=== PATIENT | female | born 1965 | race Caucasian/White ===

== ENCOUNTER 2018-09-11 12:05 | Emergency (ER) | payer OTHER, SELFPAY ==
[2018-09-11 12:06] VITALS: BP 141/83; PULSE 78; RESP 20; TEMP 35.9; O2SAT 99
[2018-09-11] MEDS: ONDANSETRON 4 MG/2 ML INJ IV (13:16)
--- NOTE | 2018-09-11 13:25 | PC.NURSE ---
pain free at this time
[2018-09-11 13:31] LABS: Add Manual Diff / Slide Review NO; Basophils Percent Auto 0.4 % (0-2); Eosinophils Percent Auto 0.3 % (2-4); Hematocrit 47.8 % (36-46); Hemoglobin 16.1 g/dL (12.0-16.0); Lymphocytes Percent Auto 15.4 % (25-40); Mean Corpuscular HGB Conc 33.6 % (30-36); Mean Corpuscular Hemoglobin 30.8 PG (26-34); Mean Corpuscular Volume 91.6 fL (80-100); Monocytes Percent Auto 8.6 % (3-14); Neutrophils Absolute Auto 6500 /uL (3000-5900); Neutrophils Percent Auto 75.3 % (50-75); Platelet Count 246 X10^3/uL (150-400); Red Blood Cell Count 5.22 X10^6/uL (4.0-5.2); Red Cell Distribution Width 13.8 % (11.6-14.8); White Blood Cell Count 8.7 X10^3/uL (4.5-11.0)
[2018-09-11 13:37] LABS: Alanine Aminotransferase 34 IU/L (9-52); Albumin 5.2 g/dL (3.5-5.0); Albumin Globulin Ratio 1.6 (1.0-2.8); Alkaline Phosphatase 91 U/L (38-126); Aspartate Aminotransferase 41 IU/L (14-36); BUN Creatinine Ratio 21.4 (6-22); Bilirubin Total 1.5 mg/dL (0.2-1.3); Blood Urea Nitrogen 15 mg/dL (7-17); Calcium 10.2 mg/dL (8.4-10.2); Carbon Dioxide 23 mmol/L (22-32); Chloride 100 mmol/L (98-107); Estimated Glomerular Filt Rate > 60.0 mL/min (>60); Ethanol (ETOH) < 10 mg/dL; Globulin 3.3 g/dL (1.7-4.1); Glucose 83 mg/dL (70-100); HEMOLYSIS < 15 (0-50); Potassium 4.2 mmol/L (3.4-5.1); Sodium 141 mmol/L (137-145); Total Protein 8.5 g/dL (6.3-8.2)
--- NOTE | 2018-09-11 14:23 | ED.ALCOHOL ---
HPI - Alcohol <CLOVER Charlton- - Last Filed: 09/11/18 15:48> General Chief Complaint: Toxicology Problem Stated Complaint: DETOXING Time Seen by Provider: 09/11/18 12:28 Source: patient Mode of arrival: ambulatory Limitations: no limitations History of Present Illness HPI narrative: Patient presents requesting medications to help up alcohol detox. She states she drinks about 6 beers a day but stopped cold turkey a few days ago. She states she has been having shakes, sweats, nausea. She states she has been drinking alcohol for several years but wants to stop as her father was an alcoholic. She denies any fevers but complains of chills and night sweats. She denies any abdominal pain but complains of nausea. She also complains of some diarrhea. She has not taken anything to feel better. She states that she wants outpatient help and does not want to go a patient. She denies any suicidal ideations, homicidal ideations or self-harm thoughts. She denies any seizure activity. Related Data Previous Rx's Medication Instructions Recorded chlordiazepoxide HCl See Label Instructions .ROUTE 09/11/18 .COMPLEX #32 cap ondansetron 4 mg PO TID-QID PRN #20 tab 09/11/18 Allergies Allergy/AdvReac Type Severity Reaction Status Date / Time codeine Allergy Verified 09/11/18 12:06 Review of Systems <[facility] - Last Filed: 09/11/18 15:48> Review of Systems GENERAL: See HPI HEENT: Denies sinus pain, ear pain, sore throat, difficulty swallowing, dizziness. RESPIRATORY: Denies dyspnea, cough, wheezing, hemoptysis, sputum. CARDIOVASCULAR: Denies chest pain, palpitations, orthopnea, edema, GASTROINTESTINAL: See HPI : Denies dysuria, frequency, incontinence, hematuria, urinary retention. MUSCULOSKELETAL: denies weakness, joint pain, or bony pain SKIN: Denies rash, skin lesions, or other NEUROLOGIC: See HPI PSYCHIATRIC: See HPI 12 point review of systems is negative except for those stated above Exam <[facility] - Last Filed: 09/11/18 15:48> Narrative Exam Narrative: GENERAL: This is a well-nourished, well-developed patient, lying on stretcher HEAD: Atraumatic. Normocephalic. No temporal or scalp tenderness. EYES: Pupils equal round and reactive. Extraocular motions intact. No scleral icterus. No injection or drainage. ENT: Nose without bleeding, purulent drainage or septal hematoma. Throat without erythema, tonsillar hypertrophy or exudate. Uvula midline. Airway patent. NECK: Trachea midline. No JVD or lymphadenopathy. Supple, nontender, no meningeal signs. CARDIOVASCULAR: Regular rate and rhythm without murmurs, gallops, or rubs. RESPIRATORY: Clear to auscultation. Breath sounds equal bilaterally. No wheezes, rales, or rhonchi. GASTROINTESTINAL: Abdomen soft, non-tender, nondistended. No hepato-splenomegaly, or palpable masses. No guarding. Hyperactive bowel sounds all 4 quadrants. EXTREMITIES: No clubbing, cyanosis, or edema. No joint tenderness, effusion, or edema noted. BACK: Nontender without deformity or crepitance. No flank tenderness. NEURO: AOx3. No slurred speech. Slight tremor noted on outstretched hand. SKIN: No rash or erythema. Initial Vital Signs Initial Vital Signs: Vital Signs Temperature 96.6 F L 09/11/18 12:06 Pulse Rate 78 09/11/18 12:06 Respiratory Rate 20 09/11/18 12:06 Blood Pressure 141/83 H 09/11/18 12:06 Pulse Oximetry 99 09/11/18 12:06 <Jan Aguirre DO - Last Filed: 09/11/18 17:38> Initial Vital Signs Initial Vital Signs: Vital Signs Temperature 96.6 F L 09/11/18 12:06 Pulse Rate 78 09/11/18 12:06 Respiratory Rate 20 09/11/18 12:06 Blood Pressure 141/83 H 09/11/18 12:06 Pulse Oximetry 99 09/11/18 12:06 Course <CLOVER Charlton-BC - Last Filed: 09/11/18 15:48> Orders Ordered: ED Orders 09/11/18 13:07 Complete Blood Count AUTO DIFF Stat Comprehensive Metabolic Panel Stat Ethanol (ETOH) Stat Discontinued Medications Sodium Chloride (Normal Saline 0.9%) 1,000 mls @ 1,000 mls/hr IV BOLUS ONE Stop: 09/11/18 15:38 Last Infusion: 09/11/18 16:09 Dose: 0 mls/hr Admin: 09/11/18 15:00 Dose: 1,000 mls/hr Ondansetron HCl (Zofran) 4 mg IV NOW ONE Stop: 09/11/18 12:41 Last Admin: 09/11/18 13:16 Dose: 4 mg Reevaluation(s) Reevaluation #1: Social Work in room. Patient conversing with no problems. Time: 14:20 Reevaluation #2: Patient states she feels much improved. States she would like to go home. States that speaking with social Work was very beneficial. Time: 14:40 Reevaluation #3: IVF is infusing. Patient is denying any questions or concerns at this point time. States she feels much improved. Expresses great appreciation for her care here. Time: 15:20 Vital Signs - 8 hr 09/11/18 12:06 09/11/18 15:17 09/11/18 16:16 Temperature 96.6 F L Pulse Rate 78 86 80 Respiratory Rate 20 16 16 Blood Pressure 141/83 H Blood Pressure [Right Arm] 130/66 122/79 Pulse Oximetry 99 98 98 <Jan Aguirre DO - Last Filed: 09/11/18 17:38> Orders Ordered: ED Orders 09/11/18 13:07 Complete Blood Count AUTO DIFF Stat Comprehensive Metabolic Panel Stat Ethanol (ETOH) Stat Discontinued Medications Sodium Chloride (Normal Saline 0.9%) 1,000 mls @ 1,000 mls/hr IV BOLUS ONE Stop: 09/11/18 15:38 Last Infusion: 09/11/18 16:09 Dose: 0 mls/hr Admin: 09/11/18 15:00 Dose: 1,000 mls/hr Ondansetron HCl (Zofran) 4 mg IV NOW ONE Stop: 09/11/18 12:41 Last Admin: 09/11/18 13:16 Dose: 4 mg Vital Signs - 8 hr 09/11/18 12:06 09/11/18 15:17 09/11/18 16:16 Temperature 96.6 F L Pulse Rate 78 86 80 Respiratory Rate 20 16 16 Blood Pressure 141/83 H Blood Pressure [Right Arm] 130/66 122/79 Pulse Oximetry 99 98 98 MDM - Alcohol <LEV Charlton - Last Filed: 09/11/18 15:48> Lab Data Result diagrams: 09/11/18 13:07 09/11/18 13:07 Labs: Lab Results 09/11/18 09/11/18 Range/Units 13:07 13:07 WBC 8.7 (4.5-11.0) X10^3/uL RBC 5.22 H (4.0-5.2) X10^6/uL Hgb 16.1 H (12.0-16.0) g/dL Hct 47.8 H (36-46) % MCV 91.6 (80-100) fL MCH 30.8 (26-34) PG MCHC 33.6 (30-36) % RDW 13.8 (11.6-14.8) % Plt Count 246 (150-400) X10^3/uL Neut % (Auto) 75.3 H (50-75) % Lymph % (Auto) 15.4 L (25-40) % Camden % (Auto) 8.6 (3-14) % Eos % (Auto) 0.3 L (2-4) % Baso % (Auto) 0.4 (0-2) % Neut # (Auto) 6500 H (8623-3051) /uL Sodium 141 (137-145) mmol/L Potassium 4.2 (3.4-5.1) mmol/L Chloride 100 (98-107) mmol/L Carbon Dioxide 23 (22-32) mmol/L BUN 15 (7-17) mg/dL Creatinine 0.70 (0.52-1.04) mg/dL Estimated GFR > 60.0 (>60) mL/min BUN/Creatinine Ratio 21.4 (6-22) Glucose 83 (70-100) mg/dL Calcium 10.2 (8.4-10.2) mg/dL Total Bilirubin 1.5 H (0.2-1.3) mg/dL AST 41 H (14-36) IU/L ALT 34 (9-52) IU/L Alkaline Phosphatase 91 (38-126) U/L Total Protein 8.5 H (6.3-8.2) g/dL Albumin 5.2 H (3.5-5.0) g/dL Globulin 3.3 (1.7-4.1) g/dL Albumin/Globulin Ratio 1.6 (1.0-2.8) Ethyl Alcohol < 10 mg/dL MDM Narrative Medical decision making narrative: Patient presents requesting medication help with alcohol detox. She is hemodynamically stable, denies SI, denies HI throughout her stay in the emergency department. Her labs came back grossly normal. History of IV fluids and Zofran. She felt much improved after these interventions. She was discharged with a Librium taper, stating understanding of that combining up with any sedating agents from alcohol. She had no questions or concerns and states that she plans on following up with primary care provider at the [place] in [place] tomorrow. <Jan Carla, DO - Last Filed: 09/11/18 17:38> Lab Data Labs: Lab Results 09/11/18 09/11/18 Range/Units 13:07 13:07 WBC 8.7 (4.5-11.0) X10^3/uL RBC 5.22 H (4.0-5.2) X10^6/uL Hgb 16.1 H (12.0-16.0) g/dL Hct 47.8 H (36-46) % MCV 91.6 (80-100) fL MCH 30.8 (26-34) PG MCHC 33.6 (30-36) % RDW 13.8 (11.6-14.8) % Plt Count 246 (150-400) X10^3/uL Neut % (Auto) 75.3 H (50-75) % Lymph % (Auto) 15.4 L (25-40) % Camden % (Auto) 8.6 (3-14) % Eos % (Auto) 0.3 L (2-4) % Baso % (Auto) 0.4 (0-2) % Neut # (Auto) 6500 H (2959-2815) /uL Sodium 141 (137-145) mmol/L Potassium 4.2 (3.4-5.1) mmol/L Chloride 100 (98-107) mmol/L Carbon Dioxide 23 (22-32) mmol/L BUN 15 (7-17) mg/dL Creatinine 0.70 (0.52-1.04) mg/dL Estimated GFR > 60.0 (>60) mL/min BUN/Creatinine Ratio 21.4 (6-22) Glucose 83 (70-100) mg/dL Calcium 10.2 (8.4-10.2) mg/dL Total Bilirubin 1.5 H (0.2-1.3) mg/dL AST 41 H (14-36) IU/L ALT 34 (9-52) IU/L Alkaline Phosphatase 91 (38-126) U/L Total Protein 8.5 H (6.3-8.2) g/dL Albumin 5.2 H (3.5-5.0) g/dL Globulin 3.3 (1.7-4.1) g/dL Albumin/Globulin Ratio 1.6 (1.0-2.8) Ethyl Alcohol < 10 mg/dL Discharge Plan Departure Patient Disposition: Home Clinical Impression: Alcohol withdrawal syndrome Discharge Date/Time: 09/11/18 16:15 Interventions: ED Discharge Assessment Last Done: 09/11/18 16:15 Instructions: DI for Delirium Tremens, DI for Alcohol Abuse, DI for Drug or Alcohol Withdrawal Activity Restrictions/Additional Instructions: I am starting you on Librium to help with your alcohol withdrawal. Please do not drink or take any sedating medications while your on this. That can kill you. I am also giving her a prescription for nausea medication to use as needed. Please follow-up with your primary care provider tomorrow as we discussed. I am glad you are taking the steps you need to take to stop drinking. This will hugely benefit your quality of life. Please come back to the emergency department if you have any acute concerns, have a seizure, or any thoughts of harming herself. Prescriptions: New chlordiazepoxide HCl 25 mg capsule See Label Instructions .ROUTE .COMPLEX Qty: 32 RF: 0 ondansetron 4 mg tablet,disintegrating 4 mg PO TID-QID PRN (Reason: nausea and vomiting) Qty: 20 RF: 0 <Jan Aguirre DO - Last Filed: 09/11/18 17:38> Cosign ED Attending Aicha Attestation: I was available for consultation during this patient's emergency department encounter
--- NOTE | 2018-09-11 14:38 | CM.SWNOTE ---
Presenting Problem: Pt came ot the Emergency Department at [facility] today for help with symptoms of alcohl withdrawal. She has been drinking 3-5 beers daily, stopped a few days ago and has felt increasingly sicker. She came in today for medication to help with nausea and shakiness. Substance abuse History: Pt reported that she began drinking at age 11. She briefly mentioned that her mother became sick and when she was 12. This appears to be a precipitant to the early alcohol abuse. Pt stated that she was sent to an aunt's [facility] who did not want her and alluded to this being just the beginning of a difficult childhood. [facility] chose not to delve into pt's history other than to encourage her to seek counseling as the ETOH seems to be connected to early difficulties. Pt reported that there is a strong familial history of alcohol abuse with father, grandfather and uncles. She has been drinking 3-5 beers daily since the age of 11 and has decided it was time to mkae a change. Pt seems very motivated to stop drinking. Plan: Pt's PCP is Dr Dorothy Correia at the [facility] at the [place]. She stated that she plans to call her tomorrow, inform her that she has not been completely honest with her and inform her that she wants help. When asked why she has decided that it's time to stop now, she reported that she received a DWI. Friend in the room, did not want her to go into any details due to the legal nature, but this seems to be the reason why pt has decided it's time to make a change. Pt is opento disucssing treatment options with her physician. Resources were offered, but pt stated that the will provide whatever she needs. Pt denied SI and HI and feels safe to return home. Her friend lives next door and she knows she can return to the emergency Department if necessary. No further Social work needs noted. Discharge Planning/Care Management ED Crisis Response Assessment Start: 09/11/18 14:31 Freq: Status: Active Protocol: Document 09/11/18 14:31 (Rec: 09/11/18 14:38 BG [id number]) ED Crisis Response Assessment PEDIATRIC MEDICAL ASSISTANT Assessment Type Substance Abuse Reason for PEDIATRIC MEDICAL ASSISTANT Referral ETOH withdrawal. Pt came to the ED due to N/V. According to her friend, she was either bringing her to [facility] ED or calling EMS. Referred by Pt's RNAmaya Presenting Problem Pt is retired [employer]. She has been drinking since the age of 11. According to pt she drinks 3-5 12 oz beers daily and has been doing this for several decades. Although she retired 14 years ago, she does not think her drinking pattern has changed. She decided to stop drinking a few days ago and has had increased signs of withdrawal. her firend convinced her to go to the ED today. Mental health diagnosis None noted other than ETOH dependence. VOA/CMS check No Suicidal thoughts No Past Suicidal thoughts No Current Suicidal thoughts No Current plan for self harm No Thoughts of harm to others No Past thoughts of harm to others No Current thoughts of harming others No Prior attempts to harm others No Current Risk factors Substance abuse Crisis Plan Pt is very motivated to stop drinking. She was very clear in her desire. She stated that when she makes a decision to do something, she does it. She plans to take whatever alcohl is in her home and bring it to ehr neighbors. She has a very good connection with her PCP and plans to call her tomorrow to discuss treatment goals to maintain sobriety. Resources Provided None as pt has insurance and stated that her insurance will provide for whatever she needs. Action taken Sent home: family/friends
[2018-09-11] MEDS: SODIUM CHLORIDE 0.9% 1,000 ML 1000 ML IV (15:00)
[2018-09-11 15:17] VITALS: BP 130/66; PULSE 86; RESP 16; O2SAT 98
[2018-09-11 16:16] VITALS: BP 122/79; PULSE 80; RESP 16; O2SAT 98
--- NOTE | 2018-10-03 15:45 | CM.SWNOTE ---
ED PATCHER WOOD WELDER NOTE TECHNICAL OPERATIONS SPECIALIST called to follow up with pt. SW called last week and left a message on VM and called again today offering resources and encouraging her to call back if she had needs. Thank you JANET Gan
== END 2018-09-11 16:15 | disposition home or self-care (01) ==
PROVIDERS: Emergency Provider Nurse Practitioner Family
DX: F10.239 Alcohol dependence with withdrawal, unspecified (principal)
CPT/HCPCS: 36591; 80053; 80320; 85025; 96361; 96374; 99283; 99284; J2405

== ENCOUNTER → 2020-08-14 13:25 | Outpatient (CLI) | payer OTHER, SELFPAY ==
[2020-08-15 09:44] LABS: COVID19 Sendout Not Detected (Not Detect)
== END ==
PROVIDERS: Referring Provider Internal Medicine Gastroenterology; Visit Provider Nurse Practitioner
DX: Z11.59 Encounter for screening for other viral diseases (principal)
CPT/HCPCS: 87635

== ENCOUNTER 2020-08-17 15:18 | Day surgery (SDC) | payer OTHER, SELFPAY ==
--- NOTE | 2020-08-17 | PATH_ITS ---
[facility] Accession Number: [id number] . 01 Material submitted: . PART A: colon - RIGHT COLON BX X3 PART B: colon - LEFT COLON BX X3 PART C: rectum - RECTAL POLYP . 01 Clinical history: . SDC . 02 Diagnosis: A, B. Right, Left Colon, Biopsies: Colonic mucosa with no diagnostic abnormality. Negative for active, chronic, and microscopic colitis. Negative for dysplasia and malignancy. . C. Rectal Polyp, Polypectomy: Traditional serrated adenoma, fragmented; please see comment. Negative for high-grade dysplasia or malignancy. [facility] 08/19/2020 1542 Local . 02 Comment: C. A traditional serrated adenoma is considered an advanced adenoma. As such, assurance of complete removal of the lesion and close clinical follow-up are recommended. . 02 Electronically signed: . Bernabe Quinonez MD, PhD, Pathologist NPI- [id number] . 01 Gross description: . A. Received in formalin and labeled with R colon biopsy x3 are multiple fragments of moon soft tissue, measuring 0.7 x 0.7 x 0.2 cm in aggregate. The fragments are entirely submitted in cassette A1. B. Received in formalin and labeled with L colon biopsy x3 are multiple fragments of moon soft tissue, measuring 0.7 x 0.7 x 0.2 cm in aggregate. All fragments are entirely submitted in cassette B1. C. Received in formalin and labeled with rectal polyp are multiple fragments of moon soft tissue, measuring 2.5 x 1.4 x 0.4 cm in aggregate. All smaller fragments are entirely submitted in cassette C1. Six larger pieces of moon soft tissue are also observed measuring 1.4 x 1.4 x 1.0 cm to 1.1 x 0.6 x 0.7 cm. The first piece has a friable surface. The first piece is inked, trisected, and entirely submitted in cassette C2. The tissue may further fragment during processing. The second piece is inked, trisected, and entirely submitted in cassette C3. The third piece is inked, trisected, and entirely submitted in cassette C4. The tissue may further fragment during processing. The four piece is inked, trisected, and entirely submitted in cassette C5. The fifth piece is inked, trisected, and entirely submitted in cassette C6. The sixth piece is inked, trisected, and entirely submitted in cassette C7. ([id number]) /[facility] 08/18/2020 1434 Local . 02 Pathologist provided ICD-10: R19.7, D12.8 . 02 CPT . 373006, 324399, [id number] Performed at: 01 [facility] [address] [id number] MD Junior Franco MD Phone: [phone] Performed at: 02 [facility] [address] [place], [place] [id number] MD Joleen Lovett MD Phone: [phone]
--- NOTE | 2020-08-17 13:28 | P.HP_ITS ---
History of Present Illness History of Present Illness Date Patient Seen: 08/17/20 Chief complaint: SDC Narrative: 55-year-old female seen at our office on 07/14/2020 due to heme- positive stool and loose stools; she is here today further workup of the a colonoscopy Patient History Family & Social History Tobacco & Substance use: alcohol intake frequency 0-2 drinks per day Substance Use Type does not use Meds Home Medications and Allergies Home Medications Medication Instructions Recorded Confirmed Type chlordiazepoxide HCl See Rx Instructions .ROUTE 09/11/18 Rx .COMPLEX #32 cap ondansetron 4 mg PO TID-QID PRN #20 tab 09/11/18 Rx Allergies Allergy/AdvReac Type Severity Reaction Status Date / Time codeine Allergy Verified 08/14/20 13:24 Exam Narrative Exam Narrative: General: Patient is well developed, not in apparent distress Cardiovascular: Regular rate and rhythm, no murmurs, rubs, or gallops; no evidence of edema; no palpable abdominal aortic aneurysm Gastrointestinal: Normoactive bowel sounds, soft, nontender, nondistended, no rebound tenderness, no hepatosplenomegaly, no evidence of hernia Assessment & Plan Assessment & Plan narrative: 55-year-old female with history of heme-positive stools and longstanding history of watery stools here for further workup by means of a colonoscopy Regarding the procedure(s), the risks and potential complications, benefits, and alternatives (including not doing the procedure) were discussed with the patient. The risks include but are not limited to bleeding, splenic injury, infection, perforation which may require surgical intervention, missed lesions, and adverse reactions to sedative medicines. After a question and answer period, the patient agreed to proceed with the procedure(s) and gives informed consent.
--- NOTE | 2020-08-17 15:35 | P.OP.ENDO_ITS ---
Operative Date/Time/Diagnoses Date of procedure: 08/17/20 Procedure Notes Procedure in detail: Surgeon: Lucho Abraham MD Procedure: Colonoscopy with endoscopic mucosal resection Preoperative diagnosis: Heme-positive stool, change in bowel habits (diarrhea) Postoperative diagnosis: Rectal polyp status post EMR, internal hemorrhoids; biopsies taken to rule out microscopic colitis Medications: General anesthesia due to heavy alcohol use Preanesthesia Assessment An H and P was performed/updated and the Px?s ASA class is 2. The procedure was discussed in detail with the patient. The potential risks and complications including infection, bleeding, missed lesions, perforation, need for surgery in case of perforation, prolonged hospital stay, and were explained. A brief question and answer period was allotted and once all questions were answered, informed consent was obtained. The patient was brought back to the procedure room and placed on standard monitoring. The patient?s vital signs were monitored continuously throughout the entire procedure. Prior to starting, a timeout was performed to confirm the patient?s identity, allergies, medications, and procedure. Procedure in detail The patient was placed in left lateral decubitus position and once adequate sedation was obtained a PAMELA was performed. The digital rectal examination did not reveal any palpable lesions. The tip of the colonoscope was placed in the anal canal and advanced without difficulty all the way to the cecum which was identified by the appendiceal orifice and the ileocecal valve. Careful examination of all andrade of the colon was performed with irrigation of any residual stool. The visualized colonic mucosa was normal in the right left colon. Biopsies were taken to rule out microscopic colitis with minimal bleeding. Retroflexion was performed in the rectum which revealed grade 1 internal hemorrhoids In the rectum, there was note of a 4 cm villous appearing polyp. Preparations were made for endoscopic mucosal resection. The polyp was lifted by means of saline to help defined borders. The polyp was then removed in piecemeal fashion using a hot snare. The entire polyp was successfully removed. The mucosal defect was closed using 3 Endoclips without difficulty. The patient tolerated the procedure well and will be brought back to the recovery area to be discharged once criteria are met. The prep was judged to be good and adequate to identify polyps less than 5 mm. The withdrawal time was 23 minutes. Complications There were no complications and estimated blood loss was minimal. Recommendations: Resume previous diet No aspirin, NSAIDs, or other anti-platelet medications such as Plavix for 2 weeks due to endoscopic mucosal resection Continue outPx medications Follow up pathology results Flexible sigmoidoscopy in 3 months to reassess EMR area Call our office ([facility]) to schedule follow-up with Dr. Abbott An emergency contact number was given to the patient for any complications related to the procedure
[2020-08-17] MEDS: SODIUM CHLORIDE 0.9% 1,000 ML 70 ML IV (15:37)
--- NOTE | 2020-08-17 15:43 | SUR.PREOP ---
Patient very unsure of medications. States that she gave a list to [facility] office, but only meds listed on H&P are sertraline and gabapentin. Physician aware that patient is unsure of med list.
[2020-08-17 15:44] VITALS: BP 110/64; PULSE 57; RESP 20; TEMP 36.7; O2SAT 98; BMI 21.4
[2020-08-17 16:45] VITALS: BP 118/58; PULSE 56; RESP 12; TEMP 36.7; O2SAT 95
[2020-08-17 16:50] VITALS: BP 106/67; PULSE 57; RESP 14; O2SAT 94
[2020-08-17 16:55] VITALS: BP 126/66; PULSE 57; RESP 14; TEMP 36.6; O2SAT 97
[2020-08-17 17:09] VITALS: BP 121/67; PULSE 57; RESP 15; TEMP 36.5; O2SAT 96
== END 2020-08-17 17:10 | disposition home or self-care (01) ==
LOC: ENDO 15:29
PROVIDERS: Visit Provider Internal Medicine Gastroenterology
PROC: 0DJD8ZZ Inspection of Lower Intestinal Tract, Via Natural or Artificial Opening Endoscopic (ICD-10-PCS; CPT 45378; principal; 2020-08-17 16:00)
DX: R19.5 Other fecal abnormalities (principal); R19.7 Diarrhea, unspecified; K64.0 First degree hemorrhoids; D12.8 Benign neoplasm of rectum
CPT/HCPCS: 45390; 45380; J2250; J2704; J3010

== ENCOUNTER → 2020-10-29 14:26 | Outpatient (CLI) | payer OTHER, SELFPAY ==
[2020-10-29 16:23] LABS: COVID19 -Nasal RAPID Negative (Negative)
== END ==
PROVIDERS: Visit Provider Nurse Practitioner
DX: Z11.59 Encounter for screening for other viral diseases (principal)
CPT/HCPCS: 87635; C9803